=== PATIENT | male | born 1950 | race Caucasian/White ===

== ENCOUNTER 2021-11-26 14:05 | Inpatient (IN) | payer MEDICARE, MEDICAID ==
[~2021-11-26] VITALS: Ht 175.3 cm; Wt 94.9 kg
[2021-11-26] MEDS ORDERED: FAMOTIDINE 20MG/2ML VIAL IV STA (15:27)
[2021-11-26] MEDS ORDERED: MAGNESIUM/ALUMINUM HYDROXIDE/SIMETHICONE 30ML UDC PO STA (15:27)
[2021-11-26] MEDS ORDERED: METOCLOPRAMIDE HCL 10MG/2ML VIAL IV STA (15:27)
[2021-11-26] MEDS ORDERED: MORPHINE SULFATE 4 MG/ML CPJ (NOT FOR IM USE) IV STA (15:27)
[2021-11-26] MEDS ORDERED: KETOROLAC 60MG/2ML VIAL IM ONE (15:45)
[2021-11-26 16:15] LABS: BASOPHILS % 0.7 % (0.0-2.0); EOSINOPHILS % 0.1 % (0.0-5.0); HEMOGLOBIN. 12.2 g/dL (14.0-18.0); LYMPHOCYTES % 13.6 % (20.0-50.0); MEAN CORPUSCULAR VOLUME 70.1 fL (80.0-94.0); MEAN PLATELET VOLUME 8.4 fl (7.4-10.4); MONOCYTES % 7.8 % (2.0-8.0); NEUTROPHILS % 77.8 % (40.0-76.0); PLATELET 316 x1000/uL (130-400); RED BLOOD CELL COUNT 5.28 mill/uL (4.7-6.1); RED CELL DISTRIBUTION WIDTH 17.1 % (11.6-14.6)
[2021-11-26 16:24] LABS: CHLORIDE 105 mEq/L (98-107)
[2021-11-26 20:53] LABS: CLARITY URINE CLEAR (CLEAR); COLOR URINE YELLOW (YELLOW); KETONES URINE TRACE (NEGATIVE); LEUKOCYTE ESTERASE URINE NEGATIVE (NEGATIVE); NITRITE URINE NEGATIVE (NEGATIVE); OCCULT BLOOD URINE NEGATIVE (NEGATIVE); PROTEIN URINE 2+ (NEGATIVE); SPECIFIC GRAVITY URINE 1.027 (1.005-1.030); UROBILINOGEN URINE 0.2 E.U./dL (0.2-1.0)
[2021-11-26] MEDS ORDERED: MORPHINE SULFATE 4 MG/ML CPJ (NOT FOR IM USE) IV ONE (22:00)
[2021-11-26] MEDS ORDERED: CEFTRIAXONE 1 G PREMIX 50 ML IV ONE (22:45)
[2021-11-27 01:00] VITALS: BP 118/63
[2021-11-27 04:00] VITALS: BP 116/67
[2021-11-27] MEDS ORDERED: ALPR-392 PO (04:24)
[2021-11-27] MEDS ORDERED: OXYC-582 MT (04:24)
[2021-11-27] MEDS ORDERED: ONDA4TAB5 PO (04:25)
[2021-11-27] MEDS ORDERED: TOPUD PO (04:25)
[2021-11-27] MEDS ORDERED: SODIUM CHLORIDE 0.9% 1,000 ML IV SCH ×2 (04:30→13:00)
[2021-11-27] MEDS ORDERED: DEXTROSE 50% WATER 50ML SYRINGE IV PRN ×2 (04:30→13:00)
[2021-11-27] MEDS: MORPHINE SULFATE 2 MG/ML CPJ (NOT FOR IM USE) IV PRN ×4 (05:25→19:51)
[2021-11-27] MEDS: BLOOD SUGAR DIAGNOSTIC STRIP TEST SCH ×6 (06:07→20:04)
[2021-11-27] MEDS: INSULIN LISPRO 100 UNITS/ML SUBCUT SCH ×4 (06:10→20:05)
[2021-11-27 08:00] VITALS: BP 122/63
[2021-11-27] MEDS: ENOXAPARIN 30MG/0.3ML SYR SUBCUT SCH ×2 (08:04→19:52)
[2021-11-27] MEDS: ONDANSETRON HCL 4MG/2ML INJ IV PRN ×2 (08:04→14:54)
[2021-11-27 12:00] VITALS: BP 130/95
[2021-11-27] MEDS ORDERED: CLONIDINE 0.1MG TABLET PO PRN (13:00)
[2021-11-27] MEDS ORDERED: ACETAMINOPHEN 325MG TABLET PO PRN (13:00)
[2021-11-27] MEDS: SODIUM CHL 0.9% + KCL 20MEQ/L 1,000 ML IV SCH (14:54)
[2021-11-27 16:00] VITALS: BP 118/67
[2021-11-27 20:00] VITALS: BP 112/58
[2021-11-28] VITALS: BP 109/73
[2021-11-28] MEDS: MORPHINE SULFATE 2 MG/ML CPJ (NOT FOR IM USE) IV PRN ×4 (00:36→13:27)
[2021-11-28] MEDS: SODIUM CHL 0.9% + KCL 20MEQ/L 1,000 ML IV SCH ×2 (00:46→09:21)
[2021-11-28] MEDS: MAGNESIUM/ALUMINUM HYDROXIDE/SIMETHICONE 30ML UDC PO PRN ×2 (01:20→06:36)
[2021-11-28 04:00] VITALS: BP 123/61
[2021-11-28] MEDS: BLOOD SUGAR DIAGNOSTIC STRIP TEST SCH ×6 (06:33→21:45)
[2021-11-28] MEDS: INSULIN LISPRO 100 UNITS/ML SUBCUT SCH ×4 (06:34→21:49)
[2021-11-28 08:00] VITALS: BP 116/61
[2021-11-28] MEDS: ENOXAPARIN 30MG/0.3ML SYR SUBCUT SCH ×2 (09:21→21:00)
[2021-11-28] MEDS: PANTOPRAZOLE SODIUM 40 MG/VIAL IV SCH (09:21)
[2021-11-28 12:00] VITALS: BP 112/69
[2021-11-28] MEDS ORDERED: CEFTRIAXONE 1 G PREMIX 50 ML IV SCH (15:00)
[2021-11-28 16:00] VITALS: BP 133/61
[2021-11-28] MEDS: CEFTRIAXONE 1,000 MG in DEXTROSE 5% WATER 50 ML IV SCH (16:38)
[2021-11-28] MEDS: HYDROCODONE/APAP 7.5/325MG 1 TAB TABLET PO PRN ×2 (17:32→23:12)
[2021-11-28 20:45] VITALS: BP 141/63
[2021-11-29] VITALS (7 sets, daily range): BP systolic 125–144; BP diastolic 45–68
[2021-11-29] MEDS: BLOOD SUGAR DIAGNOSTIC STRIP TEST SCH ×4 (05:55→21:05)
[2021-11-29] MEDS: INSULIN LISPRO 100 UNITS/ML SUBCUT SCH ×4 (05:56→21:09)
[2021-11-29] MEDS: ENOXAPARIN 30MG/0.3ML SYR SUBCUT SCH ×2 (08:18→21:09)
[2021-11-29] MEDS: PANTOPRAZOLE SODIUM 40 MG/VIAL IV SCH (08:18)
[2021-11-29] MEDS: HYDROCODONE/APAP 7.5/325MG 1 TAB TABLET PO PRN ×3 (10:49→23:25)
[2021-11-29] MEDS: CEFTRIAXONE 1,000 MG in DEXTROSE 5% WATER 50 ML IV SCH (17:23)
[2021-11-30 04:00] VITALS: BP 150/72
[2021-11-30] MEDS: HYDROCODONE/APAP 7.5/325MG 1 TAB TABLET PO PRN ×3 (05:26→18:33)
[2021-11-30] MEDS: BLOOD SUGAR DIAGNOSTIC STRIP TEST SCH ×4 (06:27→20:23)
[2021-11-30] MEDS: INSULIN LISPRO 100 UNITS/ML SUBCUT SCH ×4 (06:42→20:32)
[2021-11-30 08:00] VITALS: BP 133/76
[2021-11-30] MEDS: ENOXAPARIN 30MG/0.3ML SYR SUBCUT SCH ×2 (08:33→20:41)
[2021-11-30] MEDS: PANTOPRAZOLE SODIUM 40 MG/VIAL IV SCH (08:33)
[2021-11-30] MEDS ORDERED: METF-414 MT (11:29)
[2021-11-30] MEDS ORDERED: LORAZEPAM 0.5MG TABLET PO PRN (11:30)
[2021-11-30] MEDS ORDERED: NALOXONE HCL 0.4MG/ML VIAL IV PRN (11:45)
[2021-11-30 12:00] VITALS: BP 135/77
[2021-11-30 16:00] VITALS: BP 132/86
[2021-11-30] MEDS: CEFTRIAXONE 1,000 MG in DEXTROSE 5% WATER 50 ML IV SCH (16:32)
[2021-11-30] MEDS: HYDROCODONE/ACETAMINOPHEN 10/325MG TABLET PO PRN (19:49)
[2021-11-30 20:00] VITALS: BP 128/80
[2021-11-30] MEDS: MORPHINE SULFATE 2 MG/ML CPJ (NOT FOR IM USE) IV PRN (20:31)
[2021-11-30] MEDS: MELATONIN 3MG TABLET PO SCH (20:41)
[2021-12-01] VITALS (7 sets, daily range): BP systolic 109–134; BP diastolic 66–75
[2021-12-01] MEDS: HYDROCODONE/APAP 7.5/325MG 1 TAB TABLET PO PRN (00:39)
[2021-12-01] MEDS: HYDROCODONE/ACETAMINOPHEN 10/325MG TABLET PO PRN ×2 (03:10→14:51)
[2021-12-01] MEDS: BLOOD SUGAR DIAGNOSTIC STRIP TEST SCH ×4 (06:09→21:07)
[2021-12-01] MEDS: INSULIN LISPRO 100 UNITS/ML SUBCUT SCH ×4 (06:18→21:06)
[2021-12-01] MEDS: ENOXAPARIN 30MG/0.3ML SYR SUBCUT SCH ×2 (08:34→21:00)
[2021-12-01] MEDS: PANTOPRAZOLE SODIUM 40 MG/VIAL IV SCH (08:34)
[2021-12-01] MEDS: MORPHINE SULFATE 2 MG/ML CPJ (NOT FOR IM USE) IV PRN ×2 (08:35→20:41)
[2021-12-01] MEDS: CEFTRIAXONE 1,000 MG in DEXTROSE 5% WATER 50 ML IV SCH (17:20)
[2021-12-01] MEDS: MELATONIN 3MG TABLET PO SCH (21:06)
== END 2021-12-01 22:04 | DRG 247 ==
LOC: ER 14:05 → MICUSO 22:49 → 7EST 11-27 00:23
PROVIDERS: ADMIT Internal Medicine; ATTEND Internal Medicine
PROC: 0JBR0ZZ Excision of Left Foot Subcutaneous Tissue and Fascia, Open Approach (ICD-10-PCS; principal; 2021-11-27)
PROC: 0JBN0ZZ Excision of Right Lower Leg Subcutaneous Tissue and Fascia, Open Approach (ICD-10-PCS; 2021-11-27)
PROC: 0JBQ0ZZ Excision of Right Foot Subcutaneous Tissue and Fascia, Open Approach (ICD-10-PCS; 2021-11-27)
DX: K56.609 Unspecified intestinal obstruction, unspecified as to partial versus complete obstruction (principal); K85.90 Acute pancreatitis without necrosis or infection, unspecified; I96 Gangrene, not elsewhere classified; L97.423 Non-pressure chronic ulcer of left heel and midfoot with necrosis of muscle; N20.0 Calculus of kidney; F41.9 Anxiety disorder, unspecified; I10 Essential (primary) hypertension; K56.7 Ileus, unspecified; Z20.822 Contact with and (suspected) exposure to COVID-19; S81.802A Unspecified open wound, left lower leg, initial encounter; S81.801A Unspecified open wound, right lower leg, initial encounter; X58.XXXA Exposure to other specified factors, initial encounter; Z59.00 Homelessness unspecified; Y93.89 Activity, other specified; Y92.89 Other specified places as the place of occurrence of the external cause; Y99.8 Other external cause status; E11.621 Type 2 diabetes mellitus with foot ulcer; L97.513 Non-pressure chronic ulcer of other part of right foot with necrosis of muscle
CPT/HCPCS: 36415; 74018; 74176; 80053; 81003; 82962; 83036; 83605; 83880; 84145; 84484; 85025; 87426; 93005; 93923; 93970; 97022; 97162; 99285; C1893; C9113; J0696; J1650; J1815; J1885; J2270; J2405; J2765; J3480; J3490; J7040; J7060